=== PATIENT | female | born 1960 | race Caucasian/White ===

== ENCOUNTER → 2016-12-11 | Outpatient (CLI) | payer OTHER ==
--- NOTE | 2016-12-15 08:46 | MM ---
Reason for exam: screening (asymptomatic). Last mammogram was performed 1 year and 1 month ago. History: Patient is postmenopausal. Physical Findings: A clinical breast exam by your physician is recommended on an annual basis and results should be correlated with mammographic findings. MG Screening Mammo w CAD Bilateral CC and MLO view(s) were taken. Prior study comparison: October 31, 2015, bilateral MG diagnostic mammo w CAD JESSIE. March 26, 2015, bilateral MG screening mammo w CAD. There are scattered fibroglandular densities. No significant changes when compared with prior studies. ASSESSMENT: Benign, BI-RAD 2 RECOMMENDATION: Routine screening mammogram of both breasts in 1 year.
== END ==
LOC: RADMAMWWP 17:01
PROVIDERS: ATTEND Family Medicine
DX: Z12.31 Encounter for screening mammogram for malignant neoplasm of breast (principal)

== ENCOUNTER → 2018-02-10 | Outpatient (CLI) | payer OTHER ==
--- NOTE | 2018-02-16 16:55 | MM ---
Reason for exam: screening (asymptomatic). Last mammogram was performed 1 year and 2 months ago. History: Patient is postmenopausal. MG 3D Screening Mammo W/Cad Bilateral CC and MLO view(s) were taken. Prior study comparison: December 11, 2016, bilateral MG screening mammo w CAD. October 31, 2015, bilateral MG diagnostic mammo w CAD JESSIE. April 11, 2015, bilateral MG work up mamm w CAD BILAT. There are scattered fibroglandular densities. There are benign appearing bilateral calcifications. No suspicious abnormality. Stable right anterior depth retreareolar focal asymmetry. No significant new finding since prior exam. ASSESSMENT: Benign, BI-RAD 2 RECOMMENDATION: Routine screening mammogram of both breasts in 1 year.
== END | disposition home or self-care (01) ==
LOC: RADMAMWWP 16:31
PROVIDERS: ATTEND Family Medicine
DX: Z12.31 Encounter for screening mammogram for malignant neoplasm of breast (principal)
CPT/HCPCS: 77063; 77067

== ENCOUNTER → 2019-06-16 | Outpatient (CLI) | payer OTHER ==
--- NOTE | 2019-06-20 08:55 | MM ---
Reason for exam: screening (asymptomatic). Last mammogram was performed 1 year and 4 months ago. History: Patient is postmenopausal. Physical Findings: A clinical breast exam by your physician is recommended on an annual basis and results should be correlated with mammographic findings. MG 3D Screening Mammo W/Cad Bilateral CC and MLO view(s) were taken. Prior study comparison: February 10, 2018, bilateral MG 3d screening mammo w/cad. December 11, 2016, bilateral MG screening mammo w CAD. There are scattered fibroglandular densities. There is chronic nodularity bilaterally. No significant changes when compared with prior studies. ASSESSMENT: Benign, BI-RAD 2 RECOMMENDATION: Routine screening mammogram of both breasts in 1 year.
== END | disposition home or self-care (01) ==
LOC: RADMAMWWP 16:31
PROVIDERS: ATTEND Family Medicine
DX: Z12.31 Encounter for screening mammogram for malignant neoplasm of breast (principal)
CPT/HCPCS: 77063; 77067

== ENCOUNTER → 2021-07-26 | Outpatient (CLI) | payer OTHER ==
--- NOTE | 2021-07-26 12:47 | MM ---
Reason for exam: screening (asymptomatic). Last mammogram was performed 2 years and 1 month ago. History: Patient is postmenopausal. Physical Findings: A clinical breast exam by your physician is recommended on an annual basis and results should be correlated with mammographic findings. MG 3D Screening Mammo W/Cad Bilateral CC and MLO view(s) were taken. Prior study comparison: June 16, 2019, bilateral MG 3d screening mammo w/cad. February 10, 2018, bilateral MG 3d screening mammo w/cad. There are scattered fibroglandular densities. There are benign appearing round vascular calcifications bilaterally. There is small chronic nodularity in the left axilla. There is chronic nodularity in the right breast. Asymmetric breast tissue in the right breast anterior position, stable. There is no discrete abnormality. ASSESSMENT: Benign, BI-RAD 2 RECOMMENDATION: Routine screening mammogram of both breasts in 1 year.
== END | disposition home or self-care (01) ==
LOC: RADMAMWWP 09:13
PROVIDERS: ATTEND Family Medicine
DX: Z12.31 Encounter for screening mammogram for malignant neoplasm of breast (principal)
CPT/HCPCS: 77063; 77067

== ENCOUNTER → 2022-02-14 | Outpatient (CLI) | payer OTHER ==
--- NOTE | 2022-02-14 20:43 | CT ---
EXAMINATION TYPE: CT chest wo con CT DLP: 478 mGycm, Automated exposure control for dose reduction was used. DATE OF EXAM: 02/14/2022 5:07 PM COMPARISON: None CLINICAL INDICATION:Female, 61 years old with history of R93.1 R91.8; lung nodule TECHNIQUE: Multiple axial images were obtained through the chest. Sagittal and coronal reformats were created for review. Contrast used: none. Oral contrast used: none. FINDINGS: LUNGS/ PLEURA: No evidence of focal consolidation, pneumothorax or pleural effusion. There is scatter ed calcified pulmonary nodules most pronounced in the right middle lobe. Peripheral reticulation is s een throughout the lungs. Scattered streaky atelectasis/scarring is seen most pronounced in the left upper lung and in the lung bases. Right upper lobe 5 mm pulmonary nodule image 15 right minor fissure intrafissural lymph node. Image 31. AIRWAY: Patent and unremarkable. HEART: Size within normal limits. MEDIASTINUM: No gross evidence of adenopathy. VASCULATURE: Atherosclerotic calcifications are present throughout the aorta and its branches. MUSCULOSKELETAL: Mild disc degeneration changes are present throughout the thoracolumbar spine. SOFT TISSUES/LYMPH NODES: Unremarkable. LOWER NECK: No significant findings. UPPER ABDOMEN: No significant findings. IMPRESSION: 1. Right upper lobe 5 mm pulmonary nodule. Additional calcified granulomas are present and an right- sided intrafissural lymph node. Consider follow-up in 12 months to ensure stability if the patient amin s risk factors. 2. Scattered reticular opacities and scarring favored to represent represent sequela prior infection versus early interstitial lung disease. Attention on follow-up imaging.
== END | disposition home or self-care (01) ==
LOC: RADCTMAIN 16:53
PROVIDERS: ATTEND Family Medicine
DX: R91.8 Other nonspecific abnormal finding of lung field (principal)
CPT/HCPCS: 71250

== ENCOUNTER → 2023-01-28 | Outpatient (CLI) | payer OTHER ==
--- NOTE | 2023-01-29 16:40 | BD ---
EXAMINATION TYPE: Axial Bone Density DATE OF EXAM: 01/28/2023 CLINICAL HISTORY: 62 years old Female. ICD-10 CODE: Z13.820 Encounter for screening for osteoporosis Height: 62 in Weight: 197 lbs FRAX RISK QUESTIONS: Secondary Osteoporosis: Rheumatoid Arthritis: yes RISK FACTORS HISTORY OF: Active: yes Diet low in dairy products/other sources of calcium: yes Postmenopausal woman: age 45 Lost more than 2 inches in height since high school: yes 3" MEDICATIONS: Thyroid Medications: yes Which medication: Synthroid How Lon+ years Additional Medications: vit d, metformin, blood pressure meds, atorvastatin, EXAM MEASUREMENTS: Bone mineral densitometry was performed using the [employer]. Bone mineral density as measured about the Lumbar spine is: ----- L1-L4(G/cm2): 1.306 T Score Values are as follows: ----- L1: 0.5 ----- L2: -0.4 ----- L3: 1.6 ----- L4: 2.3 ----- L1-L4: 1.0 Z Score Values are as follows: ----- L1: 1.1 ----- L2: 0.2 ----- L3: 2.2 ----- L4: 2.9 ----- L1-L4: 1.6 Bone mineral density has: Increased 12.2% since study of: 07/01/2011 Bone mineral density about the R hip (g/cm2): 0.949 Bone mineral density about the L hip (g/cm2): 0.921 T Score values are as follows: -----R Neck: -0.7 -----L Neck: -0.8 -----R Total: -0.5 -----L Total: -0.7 Z Score values are as follows: -----R Neck: 0.1 -----L Neck: 0.0 -----R Total: 0.0 -----L Total: -0.2 Bone mineral density has: Decreased -8.9% since study of: 07/01/2011 FRAX%s: The graph provided illustrates a 8.7% chance for a major osteoporotic fx and a 0.5% chance fo r the hips probability for fx in 10 years time. IMPRESSION: Normal (Values between +1 and -1 indicate normal bone mass). Consider repeating this study in 5 year s or sooner if there is some new clinical indication. NOTE: T-SCORE=SD OF THE YOUNG ADULT MEAN.
--- NOTE | 2023-01-29 20:35 | MM ---
Reason for Exam: Screening (asymptomatic). Last mammogram was performed 1 year(s) and 6 month(s) ago. Patient History: Menarche at age 12. First Full-Term at age 20. Postmenopausal. Risk Values: Lay 5 year model risk: 1.4%. NCI Lifetime model risk: 6.2%. Prior Study Comparison: 02/10/2018 Bilateral Screening Mammogram, [facility]. 06/16/2019 Bilateral Screening Mammogram, [facility]. 07/26/2021 Bilateral Screening Mammogram, [facility]. Tissue Density: There are scattered fibroglandular densities. Findings: Analyzed By CAD. Unchanged numerous small low axillary tail lymph nodes on both sides. Unchanged focal asymmetry outer aspect of the anterior right breast. There is no suspicious group of microcalcifications or new suspicious mass in either breast. Overall Assessment: Benign, BI-RAD 2 Management: Screening Mammogram of both breasts in 1 year. . Patient should continue monthly self-breast exams. A clinical breast exam by your physician is recommended on an annual basis. This exam should not preclude additional follow-up of suspicious palpable abnormalities. Note on Lay scores and lifetime risk: 1. A Lay score greater than 3% is considered moderate risk. If this is the case, consider specialist referral to assess eligibility for a risk reducing agent. 2. If overall lifetime risk for the development of breast cancer is 20% or higher, the patient may qualify for future screening with alternating mammogram and breast MRI. Electronically signed and approved by: Alessia Bennett M.D. Radiologist
== END | disposition home or self-care (01) ==
LOC: RADMAMWWP 15:32
PROVIDERS: ATTEND Family Medicine
DX: Z12.31 Encounter for screening mammogram for malignant neoplasm of breast (principal); Z13.820 Encounter for screening for osteoporosis; M06.9 Rheumatoid arthritis, unspecified; Z78.0 Asymptomatic menopausal state
CPT/HCPCS: 77063; 77067; 77080

== ENCOUNTER → 2024-03-17 | Outpatient (CLI) | payer OTHER ==
--- NOTE | 2024-03-20 17:03 | MM ---
Reason for Exam: Screening (asymptomatic). Last mammogram was performed 1 year(s) and 2 month(s) ago. Patient History: Menarche at age 12. First Full-Term at age 20. Postmenopausal. Risk Values: Lay 5 year model risk: 1.4%. NCI Lifetime model risk: 6.0%. Prior Study Comparison: 06/16/2019 Bilateral Screening Mammogram, [facility]. 07/26/2021 Bilateral Screening Mammogram, [facility]. 01/28/2023 Bilateral MG 3D screening mammo w/cad, [facility]. Tissue Density: There are scattered areas of fibroglandular density. Findings: Analyzed By CAD. Unchanged asymmetric density anterior right breast. Benign vascular and oil cyst calcifications. Chronic nodularity on both sides. There is no suspicious group of microcalcifications or new suspicious mass in either breast. Overall Assessment: Benign, BI-RAD 2 Management: Screening Mammogram of both breasts in 1 year. . Patient should continue monthly self-breast exams. A clinical breast exam by your physician is recommended on an annual basis. This exam should not preclude additional follow-up of suspicious palpable abnormalities. Note on Lay scores and lifetime risk: 1. A Lay score greater than 3% is considered moderate risk. If this is the case, consider specialist referral to assess eligibility for a risk reducing agent. 2. If overall lifetime risk for the development of breast cancer is 20% or higher, the patient may qualify for future screening with alternating mammogram and breast MRI. [facility], , 03/20/2024 5:00 PM. Electronically signed and approved by: Alessia Bennett M.D. Radiologist
== END | disposition home or self-care (01) ==
LOC: RADMAMWWP 13:30
PROVIDERS: ATTEND Family Medicine
CPT/HCPCS: 77063; 77067